=== PATIENT | female | born 1980 | race Caucasian/White ===

== ENCOUNTER 2017-11-30 10:51 | Emergency (ER) | payer MEDICAID ==
[~2017-11-30] VITALS: Ht 167.6 cm; Wt 109.3 kg
[2017-11-30 11:04] VITALS: Ht 167.6 cm; Wt 109.3 kg
[2017-11-30 11:24] VITALS: BP 129/72
== END 2017-11-30 11:24 | disposition home or self-care (01) ==
LOC: ED 10:51
DX: J02.9 Acute pharyngitis, unspecified (principal); J20.9 Acute bronchitis, unspecified; J45.909 Unspecified asthma, uncomplicated; Z98.51 Tubal ligation status

== ENCOUNTER 2019-01-11 12:14 | Emergency (ER) | payer MEDICAID ==
[~2019-01-11] VITALS: Ht 167.6 cm; Wt 104.8 kg
[2019-01-11 12:19] VITALS: BP 128/80; Ht 167.6 cm; Wt 104.8 kg
== END 2019-01-11 15:31 | disposition home or self-care (01) ==
LOC: ED 12:14
DX: J20.9 Acute bronchitis, unspecified (principal); J45.909 Unspecified asthma, uncomplicated; Z98.51 Tubal ligation status; Z90.49 Acquired absence of other specified parts of digestive tract
CPT/HCPCS: J1100; J7620